=== PATIENT | male | born 1955 | race Caucasian/White ===

== ENCOUNTER 2018-02-22 17:28 | Inpatient (IN) | payer MEDICARE, MEDICAID ==
[~2018-02-22] VITALS: Ht 177.8 cm; Wt 76.2 kg
--- NOTE | 2018-02-22 17:43 | NUR ---
[facility]OLAND FROM NURSING HOME C/O CHEST PAIN. PATIENT IS A/OX 4. BREATHING EVEN AND UNLABORED. NO SOB, VITALS STABLE, NAD. SAFETY AND COMFORT MEAURES IN PLACE. AWAITING MD ORDERS.
[2018-02-22] MEDS ORDERED: AMLODIPINE BESYLATE 5 MG TABLET PO STA (17:56)
[2018-02-22] MEDS ORDERED: IPRATROPIUM NEB FS 0.5 MG/2.5 ML AMPUL.NEB NEB ONE (18:00)
[2018-02-22] MEDS ORDERED: ALBUTEROL FS 2.5 MG/3 ML VIAL.NEB NEB ONE (18:00)
[2018-02-22] MEDS ORDERED: predniSONE 20 MG TABLET PO ONE (18:00)
[2018-02-22] MEDS ORDERED: ALBUTEROL FS 2.5 MG/3 ML VIAL.NEB ONE (18:05)
[2018-02-22] MEDS ORDERED: IPRATROPIUM NEB FS 0.5 MG/2.5 ML AMPUL.NEB ONE (18:05)
--- NOTE | 2018-02-22 18:05 | NUR ---
NEW IV STARTED ON LAC, 20G, BLOOD DRAWN AND SENT TO LAB.
[2018-02-22 18:08] LABS: BASOPHILS # (AUTO) 0.1 /CMM (0.0-0.2); BASOPHILS % (AUTO) 0.8 % (0.0-2.0); HEMATOCRIT 48 % (39-51); HEMOGLOBIN 16.5 g/dL (13.5-17.5); LYMPHOCYTES # (AUTO) 1.3 /CMM (0.8-4.8); LYMPHOCYTES % (AUTO) 14.8 % (20.0-44.0); MEAN CORPUSCULAR HGB CONC 35 g/dl (31.0-36.0); MEAN CORPUSCULAR VOLUME 87 fL (80-96); MONOCYTES # (AUTO) 0.7 /CMM (0.1-1.30); MONOCYTES % (AUTO) 7.7 % (2.0-12.0); NEUTROPHILS # (AUTO) 6.6 /CMM (1.8-8.9); NEUTROPHILS % (AUTO) 74.7 % (43.0-81.0); PLATELET COUNT (AUTO) 284 /CMM (150-450); RDW COEFFICIENT OF VARIATION 12.6 (11.5-15.0); RED BLOOD CELL COUNT(AUTO) 5.45 MIL/uL (4.5-6.0); WHITE BLOOD COUNT (AUTO) 8.9 K/uL (4.3-11.0)
[2018-02-22] MEDS ORDERED: AMLODIPINE BESYLATE 5 MG TABLET ONE (18:10)
[2018-02-22] MEDS ORDERED: predniSONE 20 MG TABLET ONE (18:10)
[2018-02-22 18:21] LABS: CALCIUM, SERUM 9.4 mg/dL (8.5-10.1); CREATININE 0.8 mg/dL (0.6-1.3); POTASSIUM 3.6 mmol/L (3.5-5.1)
[2018-02-22 18:26] LABS: TROPONIN I 0.095 ng/mL (0.00-0.056)
[2018-02-22 18:35] LABS: ALBUMIN 3.3 g/dL (3.4-5.0); BILIRUBIN,DIRECT 0.1 mg/dL (0.0-0.2); BILIRUBIN,TOTAL 0.2 mg/dL (0.2-1.0); TOTAL PROTEIN, SERUM 7.3 g/dL (6.4-8.2)
[2018-02-22] MEDS ORDERED: ASPIRIN 325 MG TABLET ONE (18:38)
[2018-02-22] MEDS ORDERED: ALBU18HF2 IH (18:51)
[2018-02-22] MEDS ORDERED: BECL8.7A6 IH (18:51)
[2018-02-22] MEDS ORDERED: PRED20TA PO (18:51)
[2018-02-22] MEDS ORDERED: AMLO10TA4 PO (18:51)
[2018-02-22] MEDS ORDERED: DOXY100C2 PO (18:51)
[2018-02-22] MEDS ORDERED: ASPIRIN 325 MG TABLET PO ONE (19:00)
--- NOTE | 2018-02-22 19:15 | NUR ---
REPORT GIVEN TO GARCÍA STEWART FOR SIMONA.
--- NOTE | 2018-02-22 19:19 | NUR ---
CALLED [employer] GEM TECHNICIAN WAS PAGED.
[2018-02-22] MEDS ORDERED: ACETAMINOPHEN ES 500 MG TABLET PO ONE (19:30)
[2018-02-22] MEDS ORDERED: ACETAMINOPHEN ES 500 MG TABLET ONE (19:37)
--- NOTE | 2018-02-22 19:59 | NUR ---
REPORT GIVEN TO CHIKIS STEWART FOR SIMONA.
[2018-02-22] MEDS ORDERED: ENOXAPARIN SODIUM 40 MG/0.4 ML DISP.SYRIN SQ SCH (20:00)
[2018-02-22] MEDS ORDERED: Z GUARD REMEDY 2 OZ OINT TP PRN ×2 (20:00→20:15)
[2018-02-22] MEDS ORDERED: MORPHINE SULFATE INJ 2 MG/ML DISP.SYRIN IV PRN (20:00)
[2018-02-22] MEDS ORDERED: ONDANSETRON HCL/PF 4 MG/2 ML VIAL IVP PRN ×2 (20:00→20:15)
[2018-02-22] MEDS ORDERED: ACETAMINOPHEN 325 MG TABLET PO PRN ×2 (20:00→20:15)
[2018-02-22] MEDS ORDERED: ZOLPIDEM TARTRATE 5 MG TABLET PO PRN (20:00)
[2018-02-22] MEDS ORDERED: FUROSEMIDE 40 MG/4 ML VIAL IV ONE ×2 (20:00)
[2018-02-22] MEDS ORDERED: ALBUTEROL SULFATE 8 GM HFA.AER.AD IH PRN ×2 (20:00→20:15)
[2018-02-22 20:30] VITALS: BP 163/94
--- NOTE | 2018-02-22 20:30 | NUR ---
HOSPICE NURSE NOTES PT ARRIVED ON TO THE UNIT VIA GURNEY. PT ACCOMPANIED BY [employer]. PT IN CUSTODY. PT COMPLAINS OF CHEST PAIN FOR X3 DAYS. PT TELE MONITORED AT NORMAL SINUS RHYTHM. PT HAS A LEFT AC #20 IV, INTACT AND PATENT. ALL PT BELONGINGS ACCOUNTED FOR AND DOCUMENTED. SAFETY PRECAUTIONS IN PLACE. BED IN LOW LOCKED POSITION, X2 SIDE RAILS UP. 2 POLICE OFFICERS AT BEDSIDE. ORIENTED PT TO USE OF CALL LIGHT. PT WILL BE NPO AFTER MIDNIGHT. WILL CONTINUE TO MONITOR.
--- NOTE | 2018-02-22 20:34 | NUR ---
TRANSFERRED PATIENT TO TELE BED 314-2 VIA ALS PROTOCOL. NO INCIDENT NOTED.
[2018-02-22] MEDS ORDERED: FUROSEMIDE 40 MG/4 ML VIAL ONE (22:55)
--- NOTE | 2018-02-22 23:00 | NUR ---
RN NOTES PT REQUESTED PRN PAIN MEDICATION MORPHINE 2MG. WILL ADMINISTER AND CONTINUE TO MONITOR.
[2018-02-22] MEDS: ENOXAPARIN SODIUM 40 MG/0.4 ML DISP.SYRIN SQ SCH (23:07)
[2018-02-22] MEDS: MORPHINE SULFATE INJ 2 MG/ML DISP.SYRIN IV PRN (23:08)
[2018-02-23] VITALS (8 sets, daily range): BP systolic 135–171; BP diastolic 69–109
[2018-02-23] MEDS: HYDROCODONE/APAP 10/325MG 1 EA TABLET PO PRN ×2 (04:34→13:49)
--- NOTE | 2018-02-23 04:34 | NUR ---
RN NOTES PT REQUESTED MEDICATION FOR PAIN. WILL ADMINISTER PRN NORCO 10-325MG AND CONTINUE TO MONITOR.
--- NOTE | 2018-02-23 06:49 | NUR ---
RN CLOSING NOTES PT RESTING IN BED. PT IN CUSTODY OF [employer]. PT TELE MONITORED A NSR RATE IN THE 70S. PAIN MANAGED OVERNIGHT. SAFETY PRECAUTIONS IN PLACE. BED IN LOW, LOCKED POSITION, X2 SIDE RAILS UP. CALL LIGHT WITHIN REACH. WILL ENDORSE TO DAY SHIFT NURSE FOR CONTINUITY OF CARE.
--- NOTE | 2018-02-23 07:00 | NUR ---
RN NOTES PT COMPLAINED OF PAIN. WILL ADMINISTER MORPHINE MG. WILL ENDORSE TO DAY SHIFT NURSE TO REASSESS PAIN LEVEL.
[2018-02-23] MEDS: MORPHINE SULFATE INJ 2 MG/ML DISP.SYRIN IV PRN ×4 (07:17→20:37)
[2018-02-23 07:19] LABS: BASOPHILS % (AUTO) 0.3 % (0.0-2.0); EOSINOPHILS % (AUTO) 0.4 % (0.0-6.0); HEMATOCRIT 44 % (39-51); LYMPHOCYTES % (AUTO) 9.1 % (20.0-44.0); MEAN CORPUSCULAR HGB CONC 34 g/dl (31.0-36.0); MEAN CORPUSCULAR VOLUME 89 fL (80-96); MONOCYTES # (AUTO) 0.9 /CMM (0.1-1.30); MONOCYTES % (AUTO) 7.9 % (2.0-12.0); NEUTROPHILS # (AUTO) 9.5 /CMM (1.8-8.9); NEUTROPHILS % (AUTO) 82.3 % (43.0-81.0); PLATELET COUNT (AUTO) 292 /CMM (150-450); RDW COEFFICIENT OF VARIATION 13.5 (11.5-15.0); RED BLOOD CELL COUNT(AUTO) 4.97 MIL/uL (4.5-6.0); WHITE BLOOD COUNT (AUTO) 11.6 K/uL (4.3-11.0)
--- NOTE | 2018-02-23 07:20 | NUR ---
maintenance mechanic telephone initial notes Received patient in bed, asleep, head of bed elevated, no SOB or distress noted, on room air and tolerated well. Patient is on police custody. Complaint of pain of 9/10 pain scale, Morphine given. On tele monitor SR heart rate of 76, IV intact and patent, HL only. Call light with in patient reach, will continue to monitor accordingly.
[2018-02-23 08:04] LABS: ALBUMIN 3.2 g/dL (3.4-5.0); BILIRUBIN,TOTAL 0.2 mg/dL (0.2-1.0); CALCIUM, SERUM 8.9 mg/dL (8.5-10.1); CREATININE 0.7 mg/dL (0.6-1.3); MAGNESIUM 2.6 mg/dL (1.8-2.4); PHOSPHORUS 4.7 mg/dL (2.5-4.9); POTASSIUM 3.4 mmol/L (3.5-5.1); TOTAL PROTEIN, SERUM 6.7 g/dL (6.4-8.2)
[2018-02-23 08:05] LABS: THYROID STIMULATING HORMONE 0.184 uIU/mL (0.358-3.74)
[2018-02-23 08:22] LABS: TROPONIN I 0.062 ng/mL (0.00-0.056)
[2018-02-23] MEDS: predniSONE 20 MG TABLET PO SCH (08:29)
[2018-02-23] MEDS: AMLODIPINE BESYLATE 10 MG TABLET PO SCH (08:29)
[2018-02-23] MEDS: DOXYCYCLINE HYCLATE (100 MG) 100 MG TABLET PO SCH ×2 (08:29→16:00)
[2018-02-23] MEDS: VALSARTAN 80 MG TABLET PO SCH (08:31)
[2018-02-23] MEDS: ATORVASTATIN 10 MG TABLET PO SCH (08:31)
[2018-02-23] MEDS ORDERED: ASPIRIN EC 81 MG TABLET.DR PO ONE ×2 (09:00)
[2018-02-23] MEDS ORDERED: FLUTICASONE/SALMETEROL DISKUS IH SCH ×2 (09:00)
[2018-02-23] MEDS ORDERED: predniSONE 20 MG TABLET PO SCH (09:00)
[2018-02-23] MEDS ORDERED: DOXYCYCLINE HYCLATE (100 MG) 100 MG TABLET PO SCH (09:00)
[2018-02-23] MEDS ORDERED: AMLODIPINE BESYLATE 10 MG TABLET PO SCH (09:00)
[2018-02-23] MEDS ORDERED: POTASSIUM CHLORIDE 20 MEQ TAB.PRT.SR PO ONE (10:30)
--- NOTE | 2018-02-23 10:30 | NUR ---
telephone worker notes Dr. Eden on site and informed about patient potassium of 3.4 and ordered potassium 20meq x 1 only. All orders carried out and noted.
--- NOTE | 2018-02-23 12:25 | NUR ---
ms rn notes Transfer care and report given to other nurse to continue care. Patient in stable condition.
--- NOTE | 2018-02-23 12:30 | NUR ---
RN NOTES: PATIENT RESTING IN BED. NONLABORED BREATHING NOTED ON ROOM AIR. DENIES CHEST PAIN AT THE MOMENT. IV SITE ON LEFT AC PATENT AND INTACT. BED IN LOWEST LOCKED POSITION.CALL LIGHT WITHIN REACH. WILL CONTINUE TO MONTIOR
--- NOTE | 2018-02-23 14:37 | NUR ---
RN NOTES: PER CASE MANAGEMENT- PATIENT TO BE PICKED UP TOMORROW AT 12 FOR CARDIAC CATH AT [facility]. PATIENT TO BE PLACED NPO AT MIDNIGHT IN PREPARATION FOR PROCEDURE
--- NOTE | 2018-02-23 18:48 | NUR ---
RN NOTES: PATIENT RESTING IN BED. NONLABORED BREATHING NOTED ON ROOM AIR. AOX4. DENYING CHEST PAIN AT THE MOMENT. IV SITE ON LEFT AC PATENT AND INTACT. PATIENT STILL IN POLICE CUSTODY. PATIENT EDUCATED THAT HE WILL BE PLACED NPO POST MIDNIGHT FOR PLAN OF CARDIAC CATH AT [facility]. REPORT GIVEN, LABS AND CONSULTATIONS FAXED TO FACILITY. BED IN LOWEST LOCKED POSITION. CALL LIGHT WITHIN REACH. WILL ENDORSE TO NEXT SHIFT
--- NOTE | 2018-02-23 19:30 | NUR ---
MS RN OPENING NOTES: PATIENT IN BED, AOX4, ON ROOM AIR, BREATHING EVEN AND UNLABORED. APPEARS CALM AND IN NO DISTRESS. DENIES CHEST PAIN AT THIS TIME, BUT STATES THAT HE HAS NECK AND SHOULDER PAIN SCALED AT 5/10, BUT INTERMITTENT IN FREQUENCY. PIV OVER LAC G 20 INTACT AND PATENT TO FLUSH. PROVIDED FOR COMFORT AND SAFETY. BED IN LOWEST AND LOCKED POSITION, SIDERAILS UP X3, CALL LIGHT WITHIN REACH. POLICE ESCORTS BY THE ROOM. WILL CONT TO MONITOR.
[2018-02-23] MEDS: ENOXAPARIN SODIUM 40 MG/0.4 ML DISP.SYRIN SQ SCH (20:15)
--- NOTE | 2018-02-23 20:58 | NUR ---
RN NOTES: PER DR COLBERT, HOLD DOSE OF LOVENOX FOR TONIGHT, FOR CARDIAC CATHETERIZATION AT [facility] TOMORROW.
[2018-02-23] MEDS: ZOLPIDEM TARTRATE 5 MG TABLET PO PRN (23:58)
[2018-02-24] VITALS (9 sets, daily range): BP systolic 77–169; BP diastolic 35–110
--- NOTE | 2018-02-24 00:10 | NUR ---
SPOKE TO PEGGY [facility] ([facility] WITH [facility]), VERIFIED WITH HIM THAT PATIENT IS FOR CARDIAC CATHETERIZATION AND NEEDS A TELE BED AT THE VERY LEAST. PEGGY CONFIRMED, BUT STATES THAT RIGHT NOW, NO BED IS AVAILABLE AT [facility]. HE SAID UPDATE WITH CASE MGT CAN BE CHECKED AROUND 10:30 AM LATER.
--- NOTE | 2018-02-24 06:30 | NUR ---
MS RN NOTES: PATIENT IN BED, AOX4, ON ROOM AIR, BREATHING EVEN AND UNLABORED. APPEARS CALM AND IN NO DISTRESS. WAS ABLE TO SLEEP WELL THROUGH NIGHT. PIV OVER LAC G 20 INTACT AND PATENT TO FLUSH. MAINTAINED ON NPO FOR POSSIBLE CARDIAC CATHETERIZATION TODAY. PROVIDED FOR COMFORT AND SAFETY. BED IN LOWEST AND LOCKED POSITION, SIDERAILS UP X 3, CALL LIGHT WITHIN REACH. WILL ENDORSE TO AM RN FOR SIMONA.
--- NOTE | 2018-02-24 07:25 | NUR ---
ms rn initial notes Received patient in bed, asleep, head of bed elevated, no SOB or distress noted, on room air and tolerated well. Patient is on police custody. Complaint of pain of 9/10 pain scale. IV intact and patent, HL only. Call light with in patient reach, will continue to monitor accordingly. Patient is NPO for cardiac cath.
[2018-02-24] MEDS: MORPHINE SULFATE INJ 4 MG/ML DISP.SYRIN IV PRN ×4 (08:41→23:21)
[2018-02-24] MEDS: PANTOPRAZOLE 40 MG TABLET.DR PO SCH (09:13)
[2018-02-24] MEDS: DOXYCYCLINE HYCLATE (100 MG) 100 MG TABLET PO SCH ×2 (09:13→16:08)
[2018-02-24] MEDS: predniSONE 20 MG TABLET PO SCH (09:13)
[2018-02-24] MEDS: AMLODIPINE BESYLATE 10 MG TABLET PO SCH (09:13)
[2018-02-24] MEDS: FLUTICASONE/VILANTEROL 1 EACH BLST.W.DEV IH SCH (09:13)
[2018-02-24] MEDS: ATORVASTATIN 10 MG TABLET PO SCH (09:13)
[2018-02-24] MEDS: VALSARTAN 80 MG TABLET PO SCH (09:14)
[2018-02-24] MEDS ORDERED: IOHEXOL-350 100 ML VIAL IV ONE (11:00)
[2018-02-24] MEDS ORDERED: CT SWABBABLE VALVE TRANS SET 1 EA INFUS.SET MC ONE (11:00)
[2018-02-24] MEDS ORDERED: IV NS 0.9% 250 ML IV ONE (11:01)
--- NOTE | 2018-02-24 11:10 | NUR ---
ms rn notes Patient left the unit via bed, accompanied by police and director of radiology for scheduled procedure, in stable condition.
--- NOTE | 2018-02-24 11:12 | NUR ---
ms rn notes Paged Dr. Eden and called back regarding patient going for CTA and received an order for Cardizem 20mg IV once PRN for scheduled procedure. All orders carried out and noted. Will continue to monitor accordingly.
--- NOTE | 2018-02-24 11:29 | NUR ---
RN/CTA - Notes Pt for CTA, vital signs monitored, on room air. Alert and oriented x3. IV to LAC #20 patent and intact. IV Cardizem not given per photo equipment technician.
[2018-02-24] MEDS ORDERED: DILTIAZEM HCL 25 MG IV IV ONE (11:30)
--- NOTE | 2018-02-24 11:37 | NUR ---
RN/CTA - Notes Nitroglycerin SL administered despite documented allergy to Nitroglycerin. Per pt, received headaches when given medication (common side effect). Okayed by Dr Eden and Radiologist to give Nitro.
--- NOTE | 2018-02-24 11:50 | NUR ---
RN/CTA - Notes Pt transferred back to floor in stable condition. Report given to PAT Almonte to monitor any post adverse effects of Nitroglycerin. Vital signs stable.
--- NOTE | 2018-02-24 11:50 | NUR ---
ms rn notes Patient came back from the procedure, awake, and alert, accompanied by agricultural extension officer and radiology services manager. resume previous diet per MD. All orders carried out and noted.
[2018-02-24] MEDS: HYDROCODONE/APAP 10/325MG 1 EA TABLET PO PRN ×2 (16:08→21:51)
--- NOTE | 2018-02-24 19:18 | NUR ---
ms rn closing notes All needs provided, attended, and anticipated. Patient in stable condition. Call light with in patient reach, endorsed to next shift RN to continue care.
--- NOTE | 2018-02-24 19:40 | NUR ---
MS RN NOTE: PATIENT RESTING IN BED, NO ACUTE DISTRESS NOTED. BREATHING EVEN AND UNLABORED, NO SOB NOTED. IV TO LAC IN PLACE. INFORMED THAT PATIENT IS NPO AFTER MIDNIGHT AND CAN NOT EAT OR DRINK AFTER MIDNIGHT FOR COATING MIXER TENDER PROCEDURE. BED LOCKED AND IN LOWEST POSITION, CALL LIGHT IN REACH. WILL CONTINUE TO MONITOR Addendum: 02/24/18 at 2003 by STAN LOWRY RN PATIENT UNDER CUSTODY, POLICE OFFICERS AT BEDSIDE.
[2018-02-24] MEDS: ENOXAPARIN SODIUM 40 MG/0.4 ML DISP.SYRIN SQ SCH (20:15)
--- NOTE | 2018-02-24 22:00 | NUR ---
MS RN NOTE: PATIENT COMPLAINS OF CHEST/BACK PAIN 06/02, NORCO 10/325MG ORAL GIVEN PER MD ORDER. WILL CONTINUE TO MONITOR.
--- NOTE | 2018-02-24 23:30 | NUR ---
MS RN NOTE: PATIENT COMPLAINS OF CHEST/BACK PAIN 08/03, MORPHINE 2MG GIVEN PER MD ORDER. WILL CONTINUE TO MONITOR.
[2018-02-25] MEDS: ZOLPIDEM TARTRATE 5 MG TABLET PO PRN (01:16)
--- NOTE | 2018-02-25 01:20 | NUR ---
MS RN NOTE: PATIENT REQUESTED FOR SLEEPING MEDICATION, AMBIEN 5MG ORAL GIVEN PER MD ORDER. WILL CONTINUE TO MONITOR.
--- NOTE | 2018-02-25 06:20 | NUR ---
MS RN NOTE: PATIENT RESTING IN BED, NO ACUTE DISTRESS NOTED. BREATHING EVEN AND UNLABORED, NO SOB NOTED. IV TO LAC IN PLACE. PATIENT NPO SINCE MIDNIGHT FOR EMPLOYEE ADVISER PROCEDURE AT [facility]. COIL WINDER REPAIR TIME AT 0900 AND PROCEDURE AROUND NOON. UNDER CUSTODY, POLICE AT BEDSIDE. BED LOCKED AND IN LOWEST POSITION, CALL LIGHT IN REACH. WILL ENDORSE TO DAY NURSE TO CONTINUE WITH PLAN OF CARE.
[2018-02-25 07:18] LABS: BASOPHILS % (AUTO) 0.5 % (0.0-2.0); EOSINOPHILS % (AUTO) 2.5 % (0.0-6.0); HEMATOCRIT 45 % (39-51); HEMOGLOBIN 15.2 g/dL (13.5-17.5); LYMPHOCYTES # (AUTO) 1.8 /CMM (0.8-4.8); LYMPHOCYTES % (AUTO) 23.3 % (20.0-44.0); MEAN CORPUSCULAR HGB CONC 34 g/dl (31.0-36.0); MEAN CORPUSCULAR VOLUME 89 fL (80-96); MONOCYTES # (AUTO) 0.8 /CMM (0.1-1.30); MONOCYTES % (AUTO) 10.9 % (2.0-12.0); NEUTROPHILS # (AUTO) 4.7 /CMM (1.8-8.9); NEUTROPHILS % (AUTO) 62.8 % (43.0-81.0); PLATELET COUNT (AUTO) 262 /CMM (150-450); RDW COEFFICIENT OF VARIATION 13.3 (11.5-15.0); RED BLOOD CELL COUNT(AUTO) 5.05 MIL/uL (4.5-6.0); WHITE BLOOD COUNT (AUTO) 7.6 K/uL (4.3-11.0)
[2018-02-25 07:42] LABS: CALCIUM, SERUM 8.6 mg/dL (8.5-10.1); CREATININE 0.8 mg/dL (0.6-1.3); MAGNESIUM 2.1 mg/dL (1.8-2.4); PHOSPHORUS 3.8 mg/dL (2.5-4.9); POTASSIUM 3.9 mmol/L (3.5-5.1)
[2018-02-25 08:00] VITALS: BP 161/81
[2018-02-25] MEDS: MORPHINE SULFATE INJ 4 MG/ML DISP.SYRIN IV PRN (08:17)
[2018-02-25] MEDS: AMLODIPINE BESYLATE 10 MG TABLET PO SCH (08:24)
[2018-02-25] MEDS: FLUTICASONE/VILANTEROL 1 EACH BLST.W.DEV IH SCH (08:26)
[2018-02-25] MEDS: ATORVASTATIN 10 MG TABLET PO SCH (08:27)
[2018-02-25 08:28] VITALS: BP 161/81
[2018-02-25] MEDS: VALSARTAN 80 MG TABLET PO SCH (08:28)
[2018-02-25] MEDS: predniSONE 20 MG TABLET PO SCH (08:28)
[2018-02-25] MEDS: PANTOPRAZOLE 40 MG TABLET.DR PO SCH (08:28)
[2018-02-25] MEDS: DOXYCYCLINE HYCLATE (100 MG) 100 MG TABLET PO SCH (08:28)
--- NOTE | 2018-02-25 10:00 | NUR ---
RN NOTE; PATIENT TRANSFER TO [facility] CATH, PER DR MEDINA , PT IN STABLE CONDITION, TRANSFER PAPER DONE, SIGN CHECKED WITH CN AND GIVEN TO AMBULANCE. MORNING MEDICATIONS GIVE PER DR MEDINA ORDER. REPORT GIVEN TO MAY
--- NOTE | 2018-02-25 11:52 | NUR ---
RN NOTE; PT DISCHARGE PER Loyda HUNTER TO [facility]. EXIT CARE DONE PRINTED PT OUT OF THE UNIT UNABLE TO SIGN .
== END 2018-02-25 09:40 | disposition short-term general hospital (02) | DRG 280 ==
LOC: ER 17:31 → TELE 20:46 → EDBD 20:46 → MED 02-23 11:38
PROVIDERS: ADMIT Nurse Practitioner Acute Care; ATTEND Nurse Practitioner Acute Care
DX: I25.10 Atherosclerotic heart disease of native coronary artery without angina pectoris (principal); I50.33 Acute on chronic diastolic (congestive) heart failure; I21.4 Non-ST elevation (NSTEMI) myocardial infarction; I11.0 Hypertensive heart disease with heart failure; F31.9 Bipolar disorder, unspecified; Z88.8 Allergy status to other drugs, medicaments and biological substances; Z79.899 Other long term (current) drug therapy; E78.5 Hyperlipidemia, unspecified; E11.9 Type 2 diabetes mellitus without complications; F17.200 Nicotine dependence, unspecified, uncomplicated; G89.29 Other chronic pain; Z79.51 Long term (current) use of inhaled steroids; Z87.898 Personal history of other specified conditions
CPT/HCPCS: 36415; 71045-TC; 75574; 80048-TC; 80053-TC; 80061-TC; 80076-TC; 83735-TC; 83880; 84100-TC; 84439-TC; 84443-TC; 84484-TC; 85025-TC; 87081-TC; 93307-TC; A4606; J1650; J1940; J2270; J3490; J7050; Q9967; Z7610

== ENCOUNTER 2018-02-26 19:29 | Inpatient (IN) | payer MEDICARE, MEDICAID, OTHER ==
[~2018-02-26] VITALS: Ht 170.2 cm; Wt 79.0 kg
[~2018-02-26 19:29] MED LIST: ALBU18HF2 IH; AMLO10TA4 PO; BECL8.7A6 IH; DOXY100C2 PO; PRED20TA PO
--- NOTE | 2018-02-26 19:32 | NUR ---
PT BIB RA WITH A C/O CP RADIATING DOWN E. PT IS IN CUSTODY WITH [employer] FROM [facility]. PT HAD 2 STENTS PLACED 3 DAYS AGO IN [facility]. PT TAKEN TO ROOM #13. PT PLACED ON THE MONITOR AND CONTINUOUS PULSE OX.
[2018-02-26] MEDS ORDERED: MORPHINE SULFATE INJ 2 MG/ML DISP.SYRIN IV ONE (20:30)
[2018-02-26] MEDS ORDERED: CLOPIDOGREL BISULFATE 75 MG TABLET PO ONE (20:30)
[2018-02-26 20:38] LABS: BASOPHILS % (AUTO) 0.6 % (0.0-2.0); EOSINOPHILS % (AUTO) 2.6 % (0.0-6.0); HEMATOCRIT 45 % (39-51); HEMOGLOBIN 15.6 g/dL (13.5-17.5); LYMPHOCYTES # (AUTO) 1.2 /CMM (0.8-4.8); LYMPHOCYTES % (AUTO) 15.1 % (20.0-44.0); MEAN CORPUSCULAR HGB CONC 34 g/dl (31.0-36.0); MEAN CORPUSCULAR VOLUME 88 fL (80-96); MONOCYTES # (AUTO) 0.8 /CMM (0.1-1.30); MONOCYTES % (AUTO) 9.3 % (2.0-12.0); NEUTROPHILS # (AUTO) 6.1 /CMM (1.8-8.9); NEUTROPHILS % (AUTO) 72.4 % (43.0-81.0); PLATELET COUNT (AUTO) 249 /CMM (150-450); RDW COEFFICIENT OF VARIATION 12.5 (11.5-15.0); RED BLOOD CELL COUNT(AUTO) 5.14 MIL/uL (4.5-6.0); WHITE BLOOD COUNT (AUTO) 8.3 K/uL (4.3-11.0)
[2018-02-26] MEDS ORDERED: MORPHINE SULFATE INJ 4 MG/ML DISP.SYRIN ONE (20:39)
[2018-02-26] MEDS ORDERED: CLOPIDOGREL BISULFATE 75 MG TABLET ONE (20:39)
[2018-02-26 20:50] LABS: CALCIUM, SERUM 9.2 mg/dL (8.5-10.1); CREATININE 0.8 mg/dL (0.6-1.3)
[2018-02-26 20:53] LABS: INR 0.91 (0.85-1.15)
--- NOTE | 2018-02-26 20:56 | NUR ---
PT APPEARS TO BE RESTING COMFORTABLY WITH NO S/S OF PAIN OR DISTRESS.
[2018-02-26 20:59] LABS: TROPONIN I 0.03 ng/mL (0.00-0.056)
--- NOTE | 2018-02-26 22:09 | NUR ---
REPORT GIVEN TO PAT FERREIRA FOR SIMONA.
[2018-02-26 22:15] VITALS: BP 158/82
--- NOTE | 2018-02-26 22:15 | NUR ---
TELEPHONE SALES AGENT ADMISSION NOTE ADMITTED 62YO MALE PT ALERT, AWAKE, VERBALLY RESPONSIVE, ON ROOM AIR, RESPIRATIONS EVEN, UNLABORED, NO APPARENT DISTRESS NOTED. COMPLAINED OF SLIGHT PRESSURE IN THE CHEST AND DISCOMFORT, OFFERED MEDICATIONS TO BE GIVEN STATED "LATER". IV SITE LT AC INTACT, PATENT.PT HAD STENT PLACEMENT ON 02/25/18. STATED THAT HAD A FALL THIS MORNING IN THE CORRECTIONAL FACILITY. NOTED FRONTAL HEAR LINE DRY ABRASION, NO BLEEDING NOTED, NO SWELLING.BED LOCKED IN LOWEST POSITION. CALL LIGHT WITHIN REACH. ATTENDED ALL NEEDS. WILL CONTINUE TO MONITOR ACCORDINGLY.
[2018-02-26 22:30] VITALS: BP 142/78
[2018-02-26] MEDS ORDERED: IV NS 0.9% 1,000 ML IV SCH (22:30)
[2018-02-26] MEDS ORDERED: ASPIRIN EC 81 MG TABLET.DR PO SCH (22:30)
[2018-02-26] MEDS ORDERED: SIMVASTATIN 20 MG TABLET PO SCH (22:30)
[2018-02-26] MEDS ORDERED: DOCUSATE SODIUM 100 MG CAPSULE PO PRN (22:30)
[2018-02-26] MEDS ORDERED: ONDANSETRON HCL/PF 4 MG/2 ML VIAL IVP PRN (22:30)
[2018-02-26] MEDS ORDERED: NITROGLYCERIN 0.4 MG/TAB BOTTLE SL PRN (22:30)
[2018-02-26] MEDS ORDERED: ENOXAPARIN SODIUM 60 MG/0.6 ML DISP.SYRIN SQ SCH (22:30)
[2018-02-26] MEDS ORDERED: NITROGLYCERIN PACKET 1 GM PACKET TD PRN (22:30)
[2018-02-26] MEDS ORDERED: ALBUTEROL SULFATE 8 GM HFA.AER.AD IH PRN (23:00)
--- NOTE | 2018-02-26 23:15 | NUR ---
MS RN NOTE OFFERED MEDICATIONS TO BE ADMINISTERED ORDERED. STATED" PLEASE COME LATER I WANT TO REST NOW".DENIES ANY PAIN OR DISCOMFORT AT THIS TIME.ATTENDED ALL NEEDS. WILL CONTINUE TO MONITOR ACCORDINGLY.
[2018-02-26] MEDS ORDERED: MORPHINE SULFATE INJ 4 MG/ML DISP.SYRIN IV PRN (23:30)
[2018-02-27] VITALS: BP 131/66
--- NOTE | 2018-02-27 01:10 | NUR ---
MS TELE NOTE PT ACCEPTED HIS MEDICATIONS, DENIES ANY PAIN OR DISCOMFORT AT THIS TIME.NSR 70. WILL CONTINUE TO MONITOR ACCORDINGLY.
[2018-02-27 04:00] VITALS: BP_SYST 130; BP_SYST 131; BP_DIAS 56
--- NOTE | 2018-02-27 06:59 | NUR ---
EXCEL ANALYST CLOSING NOTES PT IN BED RESTING COMFORTABLY ON ROOM AIR, RESPIRATIONS EVEN, UNLABORED, NO APPARENT DISTRESS NOTED. DENIES CHEST PAIN AT THIS TIME. NSR 76. IV SITE INTACT, PATENT. CALL LIGHT WITHIN REACH. BED LOCKED IN LOWEST POSITION. KEPT CLEAN AND COMFORTABLE, ATTENDED ALL NEEDS. WILL CONTINUE TO MONITOR ACCORDINGLY
--- NOTE | 2018-02-27 07:00 | NUR ---
METAL BONDING CRIB ATTENDANT OPENING NOTES. PT WITH [employer] FOR CUSTODY. PT LOOSELY HANDCUFFED TO BED VIA RIGHT WRIST, NEURO INTACT. PT A&0X3, TELE: SR. TELE D/C PER MD WAGONER. PT TOLERATING ROOM AIR WITHOUT SOB, PT REPORTING MINOR, NON RADIATING CHEST PAIN, PT IS WITHOUT OBVIOUS S/S OF DISTRESS OR DISCOMFORT. PT WITH IVC AT L AC g#20 INTACT AND SALINE FLUSH PATENT. PT BRIEFED ON TODAY'S POC AND HAS NO CONCERN OR COMPLAINTS WITH MEDICAL STAFF OR CARE.
[2018-02-27 07:21] LABS: BASOPHILS % (AUTO) 0.6 % (0.0-2.0); HEMATOCRIT 42 % (39-51); HEMOGLOBIN 14.3 g/dL (13.5-17.5); LYMPHOCYTES # (AUTO) 1.5 /CMM (0.8-4.8); LYMPHOCYTES % (AUTO) 21.7 % (20.0-44.0); MEAN CORPUSCULAR HGB CONC 34 g/dl (31.0-36.0); MEAN CORPUSCULAR VOLUME 88 fL (80-96); MONOCYTES # (AUTO) 0.8 /CMM (0.1-1.30); MONOCYTES % (AUTO) 11.7 % (2.0-12.0); NEUTROPHILS # (AUTO) 4.2 /CMM (1.8-8.9); PLATELET COUNT (AUTO) 218 /CMM (150-450); RED BLOOD CELL COUNT(AUTO) 4.72 MIL/uL (4.5-6.0); WHITE BLOOD COUNT (AUTO) 6.8 K/uL (4.3-11.0)
[2018-02-27] MEDS ORDERED: ALBUTEROL FS 2.5 MG/3 ML VIAL.NEB NEB PRN (07:30)
[2018-02-27 07:48] LABS: TROPONIN I 0.027 ng/mL (0.00-0.056)
[2018-02-27 07:55] LABS: CALCIUM, SERUM 9.1 mg/dL (8.5-10.1); CREATININE 0.6 mg/dL (0.6-1.3); PHOSPHORUS 4.1 mg/dL (2.5-4.9); POTASSIUM 3.5 mmol/L (3.5-5.1)
[2018-02-27] MEDS ORDERED: AMLODIPINE BESYLATE 10 MG TABLET PO SCH (09:00)
[2018-02-27] MEDS ORDERED: ENOXAPARIN SODIUM 60 MG/0.6 ML DISP.SYRIN SQ SCH (09:00)
[2018-02-27] MEDS ORDERED: predniSONE 20 MG TABLET PO SCH (09:00)
[2018-02-27] MEDS ORDERED: Medication Not On Formulary EA (Doxycycline Hyclate 100 MG) PO SCH (09:00)
[2018-02-27] MEDS ORDERED: ASPIRIN EC 325 MG TABLET.DR PO SCH (09:00)
[2018-02-27] MEDS ORDERED: CLOPIDOGREL BISULFATE 75 MG TABLET PO SCH (09:00)
[2018-02-27 09:24] VITALS: BP 138/84
[2018-02-27 09:27] LABS: MAGNESIUM 1.8 mg/dL (1.8-2.4)
[2018-02-27] MEDS ORDERED: CLOP75TA15 PO (10:09)
[2018-02-27] MEDS ORDERED: SIMV20TA6 PO (10:09)
[2018-02-27] MEDS ORDERED: ASPI-869 PO (10:09)
--- NOTE | 2018-02-27 11:46 | NUR ---
MSRN D/C NOTES. PT PREPARED FO D/C PER M.Harika. PT WITH [employer] FOR CUSTODY. PT A&0X3. PT TOLERATING ROOM AIR WITHOUT SOB, PT DENIES CHEST PAIN, PT IS WITHOUT OBVIOUS S/S OF DISTRESS OR DISCOMFORT. PT IVC REMOVED AND NAD AT SITE. PT WITH ALL BELONGINGS BUT REFUSED TO SIGN DOCUMENT. WOUND CARE PHOTOGRAPH REFUSED - LAST PHOTO TAKEN WITHIN 24HRS, NO CHANGES NOTED ON INSPECTION. PT INITIALLY REFUSED TO SIGN OR BE BRIEFED ON SOH D/C PACKET BUT AT POINT OF D/C COMPLAINED AND WANTED BRIEFING. PT BRIEFED ON SOH D/C PACKET, PT VERBALIZING UNDERSTANDING. SOH D/C PACKET PROVIDED TO [employer]. PT ROOM RE CHECK FOR BELONGINGS AT EXIT. PT RN AND [employer] WHEELCHAIR ESCORT TO [employer] CAR. PT LEFT WITHOUT MEDICAL CONCERN OR COMPLAINTS.
[2018-02-27] MEDS ORDERED: ENOXAPARIN SODIUM 40 MG/0.4 ML DISP.SYRIN SQ SCH (21:00)
== END 2018-02-27 11:51 | DRG 880 ==
LOC: ER 19:32 → TELE 22:05 → MED 02-27 08:17
PROVIDERS: ADMIT Registered Nurse; ATTEND Registered Nurse
DX: F41.9 Anxiety disorder, unspecified (principal); N17.0 Acute kidney failure with tubular necrosis; I25.10 Atherosclerotic heart disease of native coronary artery without angina pectoris; F17.200 Nicotine dependence, unspecified, uncomplicated; I10 Essential (primary) hypertension; Z95.5 Presence of coronary angioplasty implant and graft; J40 Bronchitis, not specified as acute or chronic; Z79.82 Long term (current) use of aspirin; Z79.51 Long term (current) use of inhaled steroids; Z79.02 Long term (current) use of antithrombotics/antiplatelets; Z88.8 Allergy status to other drugs, medicaments and biological substances; Z79.899 Other long term (current) drug therapy; F32.9 Major depressive disorder, single episode, unspecified
CPT/HCPCS: 36415; 71045-TC; 80048-TC; 80061-TC; 83735-TC; 83880; 84100-TC; 84484-TC; 85025-TC; 85730-TC; A4606; J1650; J2270; Z7610

== ENCOUNTER 2018-03-02 17:42 | Emergency (ER) | payer MEDICARE, MEDICAID, OTHER ==
[~2018-03-02] VITALS: Ht 175.3 cm; Wt 75.7 kg
[~2018-03-02 17:42] MED LIST changes: +ASPI-869 PO; +CLOP75TA15 PO; -DOXY100C2 PO; -PRED20TA PO; +SIMV20TA6 PO
[2018-03-02] MEDS ORDERED: IBUPROFEN 400 MG TABLET ONE (18:47)
[2018-03-02 18:51] VITALS: BP 130/85
--- NOTE | 2018-03-02 18:52 | NUR ---
PT IN CUSTODY, DISCHARGED TO THE CUSTODY OF POLICE OFFICERS. VSS UPON DISCHARGE. Patient discharged to POLICE OFF[employer]ERS in stable condition. Written and verbal after care instructions given. Patient verbalizes understanding of instruction.
[2018-03-02] MEDS ORDERED: IBUPROFEN 400 MG TABLET PO ONE (19:00)
== END 2018-03-02 18:54 | disposition home or self-care (01) ==
LOC: ER 17:44
DX: S70.02XA Contusion of left hip, initial encounter (principal); G89.29 Other chronic pain; F31.9 Bipolar disorder, unspecified; I10 Essential (primary) hypertension; Z79.82 Long term (current) use of aspirin; Z88.8 Allergy status to other drugs, medicaments and biological substances; W05.0XXA Fall from non-moving wheelchair, initial encounter; Y93.89 Activity, other specified; Y92.89 Other specified places as the place of occurrence of the external cause; Y99.8 Other external cause status
CPT/HCPCS: 73503; 93005; 99284; A4606; 73502; Z7610